=== PATIENT | female | born 1990 | race Caucasian/White ===

== ENCOUNTER 2020-02-10 22:05 | Emergency (ER) | payer OTHER ==
[~2020-02-10] VITALS: Ht 182.9 cm; Wt 113.6 kg
[2020-02-10 22:13] VITALS: BP 119/70; TEMP 96.6
[2020-02-11 00:17] VITALS: PULSE 79
[2020-02-11] MEDS ORDERED: BUSPAR10 MG PO (13:26)
[2020-02-11] MEDS ORDERED: LEXAPRO20 MG PO (13:26)
[2020-02-11] MEDS ORDERED: WELLBUTRIN XL150 MG PO (13:27)
== END 2020-02-11 00:17 | disposition home or self-care (01) ==
LOC: COL.ER 22:05
DX: S61.212A Laceration without foreign body of right middle finger without damage to nail, initial encounter (principal); W26.8XXA Contact with other sharp object(s), not elsewhere classified, initial encounter; Y92.009 Unspecified place in unspecified non-institutional (private) residence as the place of occurrence of the external cause